=== PATIENT | male | born 1945 | race Caucasian/White ===

== ENCOUNTER 2017-01-14 13:20 | Emergency (ER) | payer OTHER ==
[~2017-01-14] VITALS: Ht 180.3 cm; Wt 80.5 kg
[2017-01-14 13:36] VITALS: TEMP 36.7; Ht 180.3 cm; Wt 80.5 kg
[2017-01-14] MEDS ORDERED: DUTA0.5C PO (14:49)
[2017-01-14] MEDS ORDERED: PRT/20 PO (14:49)
[2017-01-14] MEDS ORDERED: MONT1TAB5 PO (14:49)
[2017-01-14] MEDS ORDERED: FLUT0.15 (14:49)
[2017-01-14] MEDS ORDERED: CLON0.5T3 PO (14:49)
[2017-01-14] MEDS ORDERED: BUPR75TA20 PO (14:49)
[2017-01-14 15:11] LABS: BASO % 0.5 %; BASO ABS # 0.03 K/uL (0-0.2); COMPLETE YES; EOS % 1.6 %; HEMATOCRIT 40.7 % (42-52); IG% 0.2 %; LYMPH % 22.7 %; LYMPH ABS # 1.31 K/uL (1.2-3.4); MEAN CELL VOLUME 83.4 fL (80-100); MEAN CORPUSCULAR HEMOGLOBIN 26.4 pg (25-34); MEAN CORPUSCULAR HGB CONC 31.7 g/dl (32-36); MEAN PLATELET VOLUME 8.9 fL (7.4-10.4); MONO % 8.8 %; NEUT % 66.2 %; PLATELET COUNT 354 K/uL (130-400); RED BLOOD COUNT 4.88 M/uL (4.7-6.1); WHITE BLOOD COUNT 5.77 K/uL (4.8-10.8)
[2017-01-14 15:16] LABS: INR 1.1 (0.9-1.1); PARTIAL THROMBOPLASTIN RATIO 1.2; PROTHROMBIN TIME (PATIENT) 11.4 SECONDS (9.0-12.0)
[2017-01-14 15:31] LABS: BLOOD UREA NITROGEN 14 mg/dl (7-18); BUN/CREATININE RATIO 14.1 (10-20); CARBON DIOXIDE 27 mmol/L (21-32); CHLORIDE 105 mmol/L (98-107); GLUCOSE 99 mg/dl (70-99); MAGNESIUM 2.1 mg/dl (1.8-2.4); POTASSIUM 3.7 mmol/L (3.5-5.1); SODIUM 140 mmol/L (136-145)
--- NOTE | 2017-01-14 15:35 | DIAGNOSTIC IMAGING REPORT ---
CHEST ONE VIEW PORTABLE HISTORY: syncope COMPARISON: None. FINDINGS: The lungs are clear. Cardiac silhouette is normal in size. No pleural effusions. No pneumothorax. IMPRESSION: No acute process. Electronically signed by: Mamadou Palacios M.D. 01/14/2017 3:34 PM Dictated Date/Time: 01/14/2017 3:31 PM
--- NOTE | 2017-01-14 15:36 | EMERGENCY ROOM VISIT NOTE ---
History First contact with patient: 14:52 Chief Complaint: DIZZY Stated Complaint: NEAR SYNCOPE/FALL Nursing Triage Summary: pt arrived bls from the dentist office reported dizzy until fell to the floor no LOC denies hitting head pt reports for two weeks pt has had multiple dizzy events and mutiple falls to the ground pt reports "going to the left" pt also reports having red streaking in the stool today pt hx triple abdominal anurism,left femoral arteral blockage, and enlarged prostrate, self caths History of Present Illness The patient is a 71 year old male with a history of BPH requiring self cath and AAA who presents to the Emergency Room with complaints of dizzinessx 1 week. He notes he has been having intermittent episodes of dizziness and has not been associated with position of movement. He had one episode in particular which was quite bad yesterday when he was getting out of his truck and he suddenly felt dizzy and almost fell out of the truck. He had breakfast this morning and since he was feeling well he drove to his dentist and while he was there he had another episode. They recommended evaluation in the ED. He had no N &V, chest pain,diaphoresis, palpitations or SOB with the episodes of dizziness. He has no history of arrhythmias or NC. He states he has a history of "getting stressed out" and feels this is similar. He notes he has a TURP coming up and had an extensive w/u recently for his heart and AAA and all were WNL. This was in [place]. Review of Systems A 10 point review of systems was completed and was WNL aside from above Past Medical/Surgical History Medical Problems: (1) Abdominal aortic aneurysm (AAA) (2) Enlarged prostate (3) Self-catheterizes urinary bladder Family History Patient reports no known family medical history. Social History Smoking Status: Former Smoker Smokeless Tobacco Use: No Alcohol Use: none Drug Use: none Marital Status: Housing Status: lives with family Occupation Status: retired Current/Historical Medications Scheduled Dutasteride (Avodart), 1 CAP PO DAILY Montelukast Sodium (Montelukast Sodium), 1 TAB PO DAILY Pantoprazole (Protonix), 20 MG PO DAILY Scheduled PRN Clonazepam (Klonopin), 0.5 MG PO for PRN Miscellaneous Medications Bupropion (Wellbutrin), 75 MG PO Fluticasone Propionate (Nasal) (Flonase Allergy Relief) Allergies nka Physical Exam Vital Signs Date Time Temp Pulse Resp B/P (MAP) Pulse Ox O2 Delivery O2 Flow Rate FiO2 01/14/17 15:46 131/77 98/62 01/14/17 15:44 80 20 135/83 97 74 89 01/14/17 13:54 70 01/14/17 13:36 36.7 69 18 148/89 98 Room Air Physical Exam General: ambulatory, not in acute distress Skin: no rashes noted, no suspicious lesions, no areas of inflammations/ lacerations/ erythema noted CVS: S1/ S2 noted, RRR, no rubs/ murmurs noted, no cyanosis RVS: Clear throughout bilaterally, not in acute respiratory distress, no wheezing/ rales/ crackles noted ENT: no erythema/ injection/ ulcerations noted in the pharynx, no lymphadenopathy Neck: Thyroid is not palpable, inspection WNL, full ROM of neck, no bruits noted ABD: BSx4, no pain/ tenderness on palpation, no organomegaly, negative murphys, psoas, Rovsing, CVA tenderness, negative stool guaiac, enlarged prostate MSK: inspection of all limbs WNL, motor and sensation intact in all limbs, no swelling/ pain on palpation of joints NVS: CN ii-xii WNL, PERRL, EOMI, sensation intact in all extremities, DTR +2 Lymph: No lymphadenopathy palpable Medical Decision & Procedures ER Provider Diagnostic Interpretation: CHEST ONE VIEW PORTABLE HISTORY: syncope COMPARISON: None. FINDINGS: The lungs are clear. Cardiac silhouette is normal in size. No pleural effusions. No pneumothorax. IMPRESSION: No acute process. CT SCAN OF THE BRAIN WITHOUT IV CONTRAST CLINICAL HISTORY: Dizziness. COMPARISON STUDY: No priors. TECHNIQUE: Unenhanced axial CT scan of the brain is performed from the vertex to the skull base. CT DOSE: 729.78 mGycm FINDINGS: Brain parenchyma: There are age-related involutional changes noting minimal subcortical and periventricular microangiopathic change. There is no hemorrhage, mass effect, or evidence of acute territorial ischemia by CT criteria. Warren-white matter is preserved. No extra-axial fluid collection is seen. Prominent extra-axial CSF is likely related to involutional change. Ventricles, sulci, cisterns: Prominent secondary to involutional change. Intracranial vasculature: There is atherosclerotic calcification of the cavernous carotid and vertebral arteries. Calvarium: Unremarkable. Sinuses and mastoids: The visualized paranasal sinuses are clear. The mastoid air cells are well pneumatized. Orbits: The bony orbits are grossly intact. IMPRESSION: There is no hemorrhage, mass effect, or evidence of acute territorial ischemia by CT criteria. Laboratory Results 01/14/17 14:09 Red Blood Count 4.88, Mean Corpuscular Volume 83.4, Mean Corpuscular Hemoglobin 26.4, Mean Corpuscular Hemoglobin Concent 31.7, Mean Platelet Volume 8.9, Neutrophils (%) (Auto) 66.2, Lymphocytes (%) (Auto) 22.7, Monocytes (%) (Auto) 8.8, Eosinophils (%) (Auto) 1.6, Basophils (%) (Auto) 0.5, Neutrophils # (Auto) 3.82, Lymphocytes # (Auto) 1.31, Monocytes # (Auto) 0.51, Eosinophils # (Auto) 0.09, Basophils # (Auto) 0.03 01/14/17 14:09 Test 01/14/17 14:00 01/14/17 14:09 01/14/17 15:25 Total Bilirubin 0.4 mg/dl (0.2-1) Direct Bilirubin 0.1 mg/dl (0-0.2) Aspartate Amino Transf (AST/SGOT) 15 U/L (15-37) Alanine Aminotransferase (ALT/SGPT) 19 U/L (12-78) Alkaline Phosphatase 84 U/L (45-117) Total Protein 7.8 gm/dl (6.4-8.2) Albumin 3.3 gm/dl (3.4-5.0) Lipase 61 U/L (73-393) White Blood Count 5.77 K/uL (4.8-10.8) Red Blood Count 4.88 M/uL (4.7-6.1) Hemoglobin 12.9 g/dL (14.0-18.0) Hematocrit 40.7 % (42-52) Mean Corpuscular Volume 83.4 fL (80-100) Mean Corpuscular Hemoglobin 26.4 pg (25-34) Mean Corpuscular Hemoglobin Concent 31.7 g/dl (32-36) Platelet Count 354 K/uL (130-400) Mean Platelet Volume 8.9 fL (7.4-10.4) Neutrophils (%) (Auto) 66.2 % Lymphocytes (%) (Auto) 22.7 % Monocytes (%) (Auto) 8.8 % Eosinophils (%) (Auto) 1.6 % Basophils (%) (Auto) 0.5 % Neutrophils # (Auto) 3.82 K/uL (1.4-6.5) Lymphocytes # (Auto) 1.31 K/uL (1.2-3.4) Monocytes # (Auto) 0.51 K/uL (0.11-0.59) Eosinophils # (Auto) 0.09 K/uL (0-0.5) Basophils # (Auto) 0.03 K/uL (0-0.2) RDW Standard Deviation 42.7 fL (36.4-46.3) RDW Coefficient of Variation 14.0 % (11.5-14.5) Immature Granulocyte % (Auto) 0.2 % Immature Granulocyte # (Auto) 0.01 K/uL (0.00-0.02) Prothrombin Time 11.4 SECONDS (9.0-12.0) Prothromb Time International Ratio 1.1 (0.9-1.1) Activated Partial Thromboplast Time 31.0 SECONDS (21.0-31.0) Partial Thromboplastin Ratio 1.2 Anion Gap 8.0 mmol/L (3-11) Est Creatinine Clear Calc Drug Dose 72.1 ml/min Estimated GFR () 87.4 Estimated GFR (Non- 75.4 BUN/Creatinine Ratio 14.1 (10-20) Calcium Level 9.0 mg/dl (8.5-10.1) Magnesium Level 2.1 mg/dl (1.8-2.4) Troponin I < 0.015 ng/ml (0-0.045) Urine Color YELLOW Urine Appearance CLEAR (CLEAR) Urine pH 8.0 (4.5-7.5) Urine Specific [place] 1.011 (1.000-1.030) Urine Protein NEG (NEG) Urine Glucose (UA) NEG (NEG) Urine Ketones NEG (NEG) Urine Occult Blood NEG (NEG) Urine Nitrite NEG (NEG) Urine Bilirubin NEG (NEG) Urine Urobilinogen NEG (NEG) Urine Leukocyte Esterase NEG (NEG) ECG Indication: other Rate (beats per minute): 77 Rhythm: normal sinus Findings: no acute ischemic change, other (PVC occasional) Comparison ECG Date: no prior available ED Course 1450: Patient was assessed and evaluated by resident 1600: Nss 1 l @ 999/h x 1 1620: Discussed results of evaluation and patient was agreeable to d/c, has apt with PCP tomorrow Medical Decision Differential diagnosis: Etiologies such as benign positional vertigo, dehydration, hypovolemia, anemia, tumor, infection, hypoglycemia, electrolyte abnormalities, cardiac sources, intracerebral event, toxicologic, neurologic, as well as others were entertained. This is a 71 yo m with no significant cardiac history suffering from intermittent dizziness. CBC did not reveal any anemia or leukocytosis. CMP was unremarkable and no acute process noted. Troponin was negative and is reassuring as has had recent cardiac work up and symptoms x 1 week. UA did not reveal UTI as a potential source of dizziness. As the patient had such a severe episode of dizziness this was concerning for cerebellar infarct however CT head was negative. Orthostatics did reveal mild orthostatic hypotension which could be the cause of the patient's dizziness with an element of the patient's anxiety. NSS bolus administered and discussed discharge with patient. They have arranged for a follow up with PCP tomorrow and I discussed potential for 24 hour holter. Patient reflected understanding. Blood Pressure Screening Patient's blood pressure: Normal blood pressure Impression Primary Impression: Orthostatic dizziness Departure Information Dispostion Home / Self-Care Condition GOOD Patient Instructions My [facility]
[2017-01-14 15:47] LABS: URINE APPEARANCE CLEAR (CLEAR); URINE BILIRUBIN NEG (NEG); URINE COLOR YELLOW; URINE NITRITE NEG (NEG); URINE SPECIFIC GRAVITY 1.011 (1.000-1.030); UROBILINOGEN NEG (NEG); ZZURINE CULT IF INDIC CATH NO
--- NOTE | 2017-01-14 15:55 | DIAGNOSTIC IMAGING REPORT ---
CT SCAN OF THE BRAIN WITHOUT IV CONTRAST CLINICAL HISTORY: Dizziness. COMPARISON STUDY: No priors. TECHNIQUE: Unenhanced axial CT scan of the brain is performed from the vertex to the skull base. CT DOSE: 729.78 mGycm FINDINGS: Brain parenchyma: There are age-related involutional changes noting minimal subcortical and periventricular microangiopathic change. There is no hemorrhage, mass effect, or evidence of acute territorial ischemia by CT criteria. Warren-white matter is preserved. No extra-axial fluid collection is seen. Prominent extra-axial CSF is likely related to involutional change. Ventricles, sulci, cisterns: Prominent secondary to involutional change. Intracranial vasculature: There is atherosclerotic calcification of the cavernous carotid and vertebral arteries. Calvarium: Unremarkable. Sinuses and mastoids: The visualized paranasal sinuses are clear. The mastoid air cells are well pneumatized. Orbits: The bony orbits are grossly intact. IMPRESSION: There is no hemorrhage, mass effect, or evidence of acute territorial ischemia by CT criteria. Electronically signed by: Dawson Cheney M.D. 01/14/2017 3:53 PM Dictated Date/Time: 01/14/2017 3:51 PM
[2017-01-14 15:58] LABS: MANUAL MICROSCOPIC REQUIRED? NO; REVIEW REQ? NO
[2017-01-14] MEDS ORDERED: SODIUM CHLORIDE 0.9% 1000ML 1,000 ML IV ONE (16:00)
[2017-01-14 17:00] VITALS: BP 143/84; PULSE 62; O2SAT 97
--- NOTE | 2017-01-14 18:50 | EMERGENCY ROOM VISIT NOTE ---
History Report prepared by Macario: Reynold Pleitez Under the Supervision of: Dr. Saurabh Serna D.O. First contact with patient: 14:52 Chief Complaint: DIZZY Stated Complaint: NEAR SYNCOPE/FALL Nursing Triage Summary: pt arrived bls from the dentist office reported dizzy until fell to the floor no LOC denies hitting head pt reports for two weeks pt has had multiple dizzy events and mutiple falls to the ground pt reports "going to the left" pt also reports having red streaking in the stool today pt hx triple abdominal anurism,left femoral arteral blockage, and enlarged prostrate, self caths History of Present Illness The patient is a 71 year old male with a history of AAA and an enlarged prostate who presents to the Emergency Room via BLS from her dentist office with complaints of episodes of dizziness that started a week ago. He says that he has been having intermittent dizziness for the past week, and yesterday the episodes worsened. The patient notes that he was getting out of his truck yesterday, and had a sudden very bad episode of dizziness. He says that he was at his dentist office prior to arrival, and had another episode, and was recommended to come here for evaluation. The patient denies any loss of consciousness, chest pain, shortness of breath, or palpitations. The patient adds that he had an episode of blood in his stool this morning. He says that currently he is not dizzy. The patient recently had a very large workup which was all normal, including a CT of his AAA. Source of History: patient Onset: A week ago Position: other (global - dizziness) Timing: worsening, other (episodes) Associated Symptoms: + hematochezia (this morning), No LOC, No chest pain, No SOB Note: Associated symptoms: Denies palpitations. Review of Systems See HPI for pertinent positives & negatives. A total of 10 systems reviewed and were otherwise negative. Past Medical & Surgical Medical Problems: (1) Abdominal aortic aneurysm (AAA) (2) Enlarged prostate (3) Self-catheterizes urinary bladder Family History Family history omitted secondary to patient's advanced age. Social History Smoking Status: Former Smoker Alcohol Use: none Marital Status: Housing Status: lives with family Current/Historical Medications Scheduled Dutasteride (Avodart), 1 CAP PO DAILY Montelukast Sodium (Montelukast Sodium), 1 TAB PO DAILY Pantoprazole (Protonix), 20 MG PO DAILY Scheduled PRN Clonazepam (Klonopin), 0.5 MG PO for PRN Miscellaneous Medications Bupropion (Wellbutrin), 75 MG PO Fluticasone Propionate (Nasal) (Flonase Allergy Relief) Allergies Uncoded Allergies: NO KNOWN ALLERGIES (Allergy, Unknown, ., 01/14/17) Physical Exam Vital Signs Date Time Temp Pulse Resp B/P (MAP) Pulse Ox O2 Delivery O2 Flow Rate FiO2 01/14/17 17:00 62 18 143/84 97 Room Air 01/14/17 16:30 65 18 146/89 97 Room Air 01/14/17 15:46 131/77 98/62 01/14/17 15:44 80 20 135/83 97 74 89 01/14/17 13:54 70 01/14/17 13:36 36.7 69 18 148/89 98 Room Air Physical Exam VITAL SIGNS: were reviewed as above. GENERAL:Non-toxic in appearance. SKIN: Warm dry and pink. HEAD: Normocephalic and atraumatic. OROPHARYNX: Is clear and moist NECK: Supple without lymphadenopathy or meningismus. LUNGS: clear. HEART: Regular rate and rhythm. ABDOMEN: Soft and nontender. EXTREMITIES: Warm and well perfused. NEUROLOGICALLY: Awake alert and oriented without focal deficit. Cranial nerves 2 -12 are intact. There is no pronator drift. Cerebellar testing is within normal limits. There is no nystagmus. There is no facial droop. Speech is clear. Vision is grossly normal. MUSCULOSKELETAL: Good muscle tone. No evidence of trauma. Medical Decision & Procedures ER Provider Diagnostic Interpretation: Radiology results as stated below per my review and radiologist interpretation: CHEST ONE VIEW PORTABLE HISTORY: syncope COMPARISON: None. FINDINGS: The lungs are clear. Cardiac silhouette is normal in size. No pleural effusions. No pneumothorax. IMPRESSION: No acute process. Electronically signed by: Mamadou Palacios M.D. 01/14/2017 3:34 PM Dictated Date/Time: 01/14/2017 3:[address] SCAN OF THE BRAIN WITHOUT IV CONTRAST CLINICAL HISTORY: Dizziness. COMPARISON STUDY: No priors. TECHNIQUE: Unenhanced axial CT scan of the brain is performed from the vertex to the skull base. CT DOSE: 729.78 mGycm FINDINGS: Brain parenchyma: There are age-related involutional changes noting minimal subcortical and periventricular microangiopathic change. There is no hemorrhage, mass effect, or evidence of acute territorial ischemia by CT criteria. Warren-white matter is preserved. No extra-axial fluid collection is seen. Prominent extra-axial CSF is likely related to involutional change. Ventricles, sulci, cisterns: Prominent secondary to involutional change. Intracranial vasculature: There is atherosclerotic calcification of the cavernous carotid and vertebral arteries. Calvarium: Unremarkable. Sinuses and mastoids: The visualized paranasal sinuses are clear. The mastoid air cells are well pneumatized. Orbits: The bony orbits are grossly intact. IMPRESSION: There is no hemorrhage, mass effect, or evidence of acute territorial ischemia by CT criteria. Electronically signed by: Dawson Cheney M.D. 01/14/2017 3:53 PM Dictated Date/Time: 01/14/2017 3:51 PM Laboratory Results 01/14/17 14:09 Red Blood Count 4.88, Mean Corpuscular Volume 83.4, Mean Corpuscular Hemoglobin 26.4, Mean Corpuscular Hemoglobin Concent 31.7, Mean Platelet Volume 8.9, Neutrophils (%) (Auto) 66.2, Lymphocytes (%) (Auto) 22.7, Monocytes (%) (Auto) 8.8, Eosinophils (%) (Auto) 1.6, Basophils (%) (Auto) 0.5, Neutrophils # (Auto) 3.82, Lymphocytes # (Auto) 1.31, Monocytes # (Auto) 0.51, Eosinophils # (Auto) 0.09, Basophils # (Auto) 0.03 01/14/17 14:09 Test 01/14/17 14:00 01/14/17 14:09 01/14/17 15:25 Total Bilirubin 0.4 mg/dl (0.2-1) Direct Bilirubin 0.1 mg/dl (0-0.2) Aspartate Amino Transf (AST/SGOT) 15 U/L (15-37) Alanine Aminotransferase (ALT/SGPT) 19 U/L (12-78) Alkaline Phosphatase 84 U/L (45-117) Total Protein 7.8 gm/dl (6.4-8.2) Albumin 3.3 gm/dl (3.4-5.0) Lipase 61 U/L (73-393) White Blood Count 5.77 K/uL (4.8-10.8) Red Blood Count 4.88 M/uL (4.7-6.1) Hemoglobin 12.9 g/dL (14.0-18.0) Hematocrit 40.7 % (42-52) Mean Corpuscular Volume 83.4 fL (80-100) Mean Corpuscular Hemoglobin 26.4 pg (25-34) Mean Corpuscular Hemoglobin Concent 31.7 g/dl (32-36) Platelet Count 354 K/uL (130-400) Mean Platelet Volume 8.9 fL (7.4-10.4) Neutrophils (%) (Auto) 66.2 % Lymphocytes (%) (Auto) 22.7 % Monocytes (%) (Auto) 8.8 % Eosinophils (%) (Auto) 1.6 % Basophils (%) (Auto) 0.5 % Neutrophils # (Auto) 3.82 K/uL (1.4-6.5) Lymphocytes # (Auto) 1.31 K/uL (1.2-3.4) Monocytes # (Auto) 0.51 K/uL (0.11-0.59) Eosinophils # (Auto) 0.09 K/uL (0-0.5) Basophils # (Auto) 0.03 K/uL (0-0.2) RDW Standard Deviation 42.7 fL (36.4-46.3) RDW Coefficient of Variation 14.0 % (11.5-14.5) Immature Granulocyte % (Auto) 0.2 % Immature Granulocyte # (Auto) 0.01 K/uL (0.00-0.02) Prothrombin Time 11.4 SECONDS (9.0-12.0) Prothromb Time International Ratio 1.1 (0.9-1.1) Activated Partial Thromboplast Time 31.0 SECONDS (21.0-31.0) Partial Thromboplastin Ratio 1.2 Anion Gap 8.0 mmol/L (3-11) Est Creatinine Clear Calc Drug Dose 72.1 ml/min Estimated GFR () 87.4 Estimated GFR (Non- 75.4 BUN/Creatinine Ratio 14.1 (10-20) Calcium Level 9.0 mg/dl (8.5-10.1) Magnesium Level 2.1 mg/dl (1.8-2.4) Troponin I < 0.015 ng/ml (0-0.045) Urine Color YELLOW Urine Appearance CLEAR (CLEAR) Urine pH 8.0 (4.5-7.5) Urine Specific [place] 1.011 (1.000-1.030) Urine Protein NEG (NEG) Urine Glucose (UA) NEG (NEG) Urine Ketones NEG (NEG) Urine Occult Blood NEG (NEG) Urine Nitrite NEG (NEG) Urine Bilirubin NEG (NEG) Urine Urobilinogen NEG (NEG) Urine Leukocyte Esterase NEG (NEG) Laboratory results as stated above per my review. Medications Administered Medications (Trade) Dose Ordered Sig/Lisa Route Start Time Stop Time Status Last Admin Dose Admin Sodium Chloride 1,000 ml @ 999 mls/hr Q1H1M ONCE IV 01/14/17 16:00 01/14/17 17:00 DC 01/14/17 16:21 999 MLS/HR ECG Indication: weakness Rate (beats per minute): 77 Rhythm: normal sinus Findings: no ectopy, other (no acute injury) ED Course 1457: Previous medical records were reviewed. The patient was evaluated in room C12B. A complete history and physical examination was performed. 1600: Ordered NSS 1000 ml @ 999 mls/hr IV. 1639: On reevaluation, the patient is feeling better. I discussed the results and findings with the patient. He verbalized agreement of the treatment plan. He was discharged home. Medical Decision Differential includes acute coronary syndrome, myocardial infarction, CVA, TIA, anemia, infection, pneumonia, UTI, pyelonephritis, poor nutrition, dehydration, electrolyte disturbance,hypoglycemia. The patient is 71-year-old male who presents to the ED with a chief complaint of intermittent dizziness for the past week. Yesterday seemed to be worse. Today he was at his dentist and had a similar episode. He was referred here. The patient states he had extensive workup recently with regards to presurgical TURP. He states they did not find any abnormalities. He denies any dizziness now but had earlier. He has a normal exam. His heme occult was heme-negative. The CBC is normal, complete metabolic panel is normal, chest x-ray was negative for acute disease, troponin was negative, urine did not show infection and a CT scan of the head was negative for acute disease. The patient did have some positive orthostatic vital signs. He was minimally symptomatic with this. The patient was hydrated with IV fluids. He was felt to be stable for discharge and outpatient follow-up. Medication Reconcilliation Current Medication List: was personally reviewed by me Blood Pressure Screening Patient's blood pressure: Normal blood pressure Impression Primary Impression: Orthostatic dizziness Scribe Attestation The scribe's documentation has been prepared under my direction and personally reviewed by me in its entirety. I confirm that the note above accurately reflects all work, treatment, procedures, and medical decision making performed by me. Departure Information Dispostion Home / Self-Care Referrals Rika Vargas M.D. Forms HOME CARE DOCUMENTATION FORM, IMPORTANT VISIT INFORMATION Patient Instructions My [facility] Additional Instructions You have been evaluated for dizzness in the ED. Labs were unremarkable and your urine did not indicate sign of infection. A Head scan was completed as well which was negative. Your blood pressure did drop significantly when we checked it standing so you did receive some fluid. We would like you to follow up with your PCP as arranged tomorrow and potentially discuss a holter monitor for your fault. If you have worsening or changing symptoms please return to the ED.
== END 2017-01-14 17:26 | disposition home or self-care (01) ==
LOC: EDBD 13:20 → C.EDC 13:24
DX: R42 Dizziness and giddiness (principal); N40.0 Benign prostatic hyperplasia without lower urinary tract symptoms; Z87.891 Personal history of nicotine dependence; Z79.899 Other long term (current) drug therapy